=== PATIENT | female | born 1950 | race Two or more races ===

== ENCOUNTER 2018-06-27 06:57 | Outpatient (CLI) | payer OTHER ==
[2018-06-27] MEDS ORDERED: LOPRESSOR25 MG PO (12:40)
[2018-06-27] MEDS ORDERED: METFORMIN HCL500 MG PO (12:41)
[2018-06-27] MEDS ORDERED: ZESTRIL20 MG PO (12:41)
[2018-06-27] MEDS ORDERED: SYNTHROID100 MCG PO (13:31)
[2018-06-27] MEDS ORDERED: METFORMIN HCL850 MG PO (13:32)
[2018-06-27] MEDS ORDERED: PROTONIX20 MG PO (13:32)
[2018-06-27] MEDS ORDERED: [UNRECOGNIZED DRUG - OTHER] (13:32)
[2018-06-27] MEDS ORDERED: ECOTRIN81 MG PO (13:33)
[2018-06-27] MEDS ORDERED: SINGULAIR10 MG PO (13:39)
[2018-06-27] MEDS ORDERED: [UNRECOGNIZED DRUG - OTHER] PO (13:39)
== END 2018-06-27 07:09 | disposition home or self-care (01) ==
LOC: LAB 06:57
DX: Z96.651 Presence of right artificial knee joint (principal)

== ENCOUNTER 2018-06-27 07:30 | Inpatient (IN) | payer OTHER ==
[~2018-06-27] VITALS: Ht 162.6 cm; Wt 122.5 kg
[2018-06-27] MEDS ORDERED: LOPRESSOR25 MG PO (12:40)
[2018-06-27] MEDS ORDERED: ZESTRIL20 MG PO (12:41)
[2018-06-27] MEDS ORDERED: METFORMIN HCL500 MG PO (12:41)
[2018-06-27] MEDS ORDERED: SYNTHROID100 MCG PO (13:31)
[2018-06-27] MEDS ORDERED: METFORMIN HCL850 MG PO (13:32)
[2018-06-27] MEDS ORDERED: PROTONIX20 MG PO (13:32)
[2018-06-27] MEDS ORDERED: [UNRECOGNIZED DRUG - OTHER] (13:32)
[2018-06-27] MEDS ORDERED: ECOTRIN81 MG PO (13:33)
[2018-06-27] MEDS ORDERED: SINGULAIR10 MG PO (13:39)
[2018-06-27] MEDS ORDERED: [UNRECOGNIZED DRUG - OTHER] PO (13:39)
[2018-07-06] MEDS ORDERED: INTEGRA PLUS C1 EACH PO (06:15)
[2018-07-06] MEDS ORDERED: CODE1TAB37 PO (06:15)
[2018-07-06] MEDS ORDERED: XARELTO10 MG PO (06:15)
== END 2018-07-06 14:41 | disposition home or self-care (01) | DRG 470 ==
LOC: RECOVERY 07:30 → SURH 07:30 → EDUNIT# 07:30 → O/R 07-04 05:45 → SURG 07-04 05:45
PROVIDERS: ADMIT Orthopaedic Surgery Sports Medicine
PROC: 0SRC0J9 Replacement of Right Knee Joint with Synthetic Substitute, Cemented, Open Approach (ICD-10-PCS; principal; 2018-07-04 07:00)
DX: M17.11 Unilateral primary osteoarthritis, right knee (principal); E03.8 Other specified hypothyroidism; I11.0 Hypertensive heart disease with heart failure; I10 Essential (primary) hypertension; I73.89 Other specified peripheral vascular diseases

== ENCOUNTER 2020-08-20 08:35 | Outpatient (CLI) | payer OTHER ==
[~2020-08-20 08:35] MED LIST: CODE1TAB37 PO; ECOTRIN81 MG PO; INTEGRA PLUS C1 EACH PO; LOPRESSOR25 MG PO; METFORMIN HCL500 MG PO; METFORMIN HCL850 MG PO; PROTONIX20 MG PO; SINGULAIR10 MG PO; SYNTHROID100 MCG PO; XARELTO10 MG PO; ZESTRIL20 MG PO; [UNRECOGNIZED DRUG - OTHER]; [UNRECOGNIZED DRUG - OTHER] PO
== END 2020-08-20 08:39 | disposition home or self-care (01) ==
LOC: LAB 08:35
PROVIDERS: ATTEND Internal Medicine Cardiovascular Disease
DX: N18.2 Chronic kidney disease, stage 2 (mild) (principal); R80.0 Isolated proteinuria; I10 Essential (primary) hypertension; E11.9 Type 2 diabetes mellitus without complications; E03.8 Other specified hypothyroidism; E78.2 Mixed hyperlipidemia

== ENCOUNTER 2020-08-20 09:35 | Outpatient (CLI) | payer OTHER | END 2020-08-20 09:48 | disposition home or self-care (01) | LOC: NUCLEAR 09:35 | PROVIDERS: ATTEND Internal Medicine Cardiovascular Disease | DX: I87.2 Venous insufficiency (chronic) (peripheral) (principal); I10 Essential (primary) hypertension ==

== ENCOUNTER 2020-08-20 10:16 | Outpatient (CLI) | payer OTHER | END 2020-08-20 10:17 | disposition home or self-care (01) | LOC: SONOGRAMA 10:16 | PROVIDERS: ATTEND Internal Medicine Cardiovascular Disease | DX: E03.8 Other specified hypothyroidism (principal); E04.8 Other specified nontoxic goiter ==

== ENCOUNTER 2020-10-08 10:51 | Outpatient (CLI) | payer OTHER | END 2020-10-08 10:59 | disposition home or self-care (01) | LOC: SONOGRAMA 10:51 | PROVIDERS: ATTEND Internal Medicine Nephrology | DX: N18.2 Chronic kidney disease, stage 2 (mild) (principal) ==

== ENCOUNTER 2021-01-20 07:26 | Outpatient (CLI) | payer OTHER | END 2021-01-20 07:32 | disposition home or self-care (01) | LOC: MAMO-SONO 07:26 | PROVIDERS: ATTEND Obstetrics & Gynecology | DX: N60.11 Diffuse cystic mastopathy of right breast (principal); N60.12 Diffuse cystic mastopathy of left breast; Z12.31 Encounter for screening mammogram for malignant neoplasm of breast; R92.0 Mammographic microcalcification found on diagnostic imaging of breast ==

== ENCOUNTER 2021-01-23 08:23 | Outpatient (CLI) | payer OTHER | END 2021-01-23 08:29 | disposition home or self-care (01) | LOC: TOM 08:23 | PROVIDERS: ATTEND Obstetrics & Gynecology | DX: K45.1 Other specified abdominal hernia with gangrene (principal); R10.84 Generalized abdominal pain | CPT/HCPCS: 74177; Q9965 ==

== ENCOUNTER 2021-05-29 07:00 | Inpatient (IN) | payer OTHER ==
[~2021-05-29] VITALS: Ht 162.6 cm; Wt 121.1 kg
[2021-06-03] MEDS ORDERED: VASOTEC20 MG (09:10)
[2021-06-04] MEDS ORDERED: BACTRIM DS TAB1 EACH PO (06:33)
[2021-06-04] MEDS ORDERED: XARELTO10 MG PO (06:33)
[2021-06-04] MEDS ORDERED: TRAMADOL HCL50 MG PO (06:33)
[2021-06-04] MEDS ORDERED: INTEGRA PLUS C1 EACH PO (06:33)
== END 2021-06-05 19:30 | DRG 470 ==
LOC: SURH 06-02 07:00 → O/R 06-02 07:18 → SURH 06-02 07:18
PROVIDERS: ADMIT Orthopaedic Surgery Sports Medicine; ATTEND Orthopaedic Surgery Sports Medicine
PROC: 0SRD0J9 Replacement of Left Knee Joint with Synthetic Substitute, Cemented, Open Approach (ICD-10-PCS; principal; 2021-06-02 18:15)
DX: M17.12 Unilateral primary osteoarthritis, left knee (principal); I10 Essential (primary) hypertension; E78.49 Other hyperlipidemia; E03.8 Other specified hypothyroidism; E66.01 Morbid (severe) obesity due to excess calories; E11.9 Type 2 diabetes mellitus without complications; Z79.4 Long term (current) use of insulin; Z20.822 Contact with and (suspected) exposure to COVID-19

== ENCOUNTER → 2021-07-28 08:52 | Outpatient (CLI) | payer OTHER ==
[~2021-07-28 08:52] MED LIST changes: +BACTRIM DS TAB1 EACH PO; +TRAMADOL HCL50 MG PO; +VASOTEC20 MG
== END | disposition home or self-care (01) ==
LOC: LAB 08:52
PROVIDERS: ATTEND Internal Medicine Cardiovascular Disease
DX: E11.9 Type 2 diabetes mellitus without complications (principal); I10 Essential (primary) hypertension; E03.9 Hypothyroidism, unspecified; E78.2 Mixed hyperlipidemia; Z12.11 Encounter for screening for malignant neoplasm of colon; M17.12 Unilateral primary osteoarthritis, left knee

== ENCOUNTER → 2021-09-30 | Outpatient (CLI) | payer OTHER | END | disposition home or self-care (01) | LOC: RAD 15:26 | PROVIDERS: ATTEND Internal Medicine Cardiovascular Disease | DX: M12.9 Arthropathy, unspecified (principal) ==

== ENCOUNTER 2021-10-08 13:29 | Outpatient (CLI) | payer OTHER | END 2021-10-08 13:30 | disposition home or self-care (01) | LOC: NUCLEAR 13:29 | PROVIDERS: ATTEND Internal Medicine Cardiovascular Disease | DX: M81.0 Age-related osteoporosis without current pathological fracture (principal); E55.9 Vitamin D deficiency, unspecified; Z88.5 Allergy status to narcotic agent; Z91.013 Allergy to seafood; Z88.6 Allergy status to analgesic agent; Z88.8 Allergy status to other drugs, medicaments and biological substances ==

== ENCOUNTER 2021-10-30 16:00 | Outpatient (CLI) | payer OTHER | END 2021-10-30 16:03 | disposition home or self-care (01) | LOC: MAMO-SONO 16:00 | PROVIDERS: ATTEND Internal Medicine Cardiovascular Disease | DX: Z12.31 Encounter for screening mammogram for malignant neoplasm of breast (principal); N63.11 Unspecified lump in the right breast, upper outer quadrant ==

== ENCOUNTER 2021-10-30 16:43 | Outpatient (CLI) | payer OTHER | END 2021-10-30 16:44 | disposition home or self-care (01) | LOC: LAB 16:43 | PROVIDERS: ATTEND Internal Medicine Cardiovascular Disease | DX: I11.9 Hypertensive heart disease without heart failure (principal); E78.00 Pure hypercholesterolemia, unspecified; E55.9 Vitamin D deficiency, unspecified; E03.9 Hypothyroidism, unspecified; E78.2 Mixed hyperlipidemia; E11.9 Type 2 diabetes mellitus without complications ==

== ENCOUNTER 2022-02-23 11:03 | Outpatient (CLI) | payer OTHER | END 2022-02-23 11:05 | disposition home or self-care (01) | LOC: LAB 11:03 | PROVIDERS: ATTEND Internal Medicine Cardiovascular Disease | DX: I10 Essential (primary) hypertension (principal); E11.9 Type 2 diabetes mellitus without complications; E03.9 Hypothyroidism, unspecified; E78.2 Mixed hyperlipidemia; Z12.11 Encounter for screening for malignant neoplasm of colon ==

== ENCOUNTER 2022-02-24 07:28 | Outpatient (CLI) | payer OTHER | END 2022-02-24 07:29 | disposition home or self-care (01) | LOC: LAB 07:28 | PROVIDERS: ATTEND Internal Medicine Cardiovascular Disease | DX: I10 Essential (primary) hypertension (principal); E11.9 Type 2 diabetes mellitus without complications; E03.9 Hypothyroidism, unspecified; E78.2 Mixed hyperlipidemia; Z12.11 Encounter for screening for malignant neoplasm of colon ==

== ENCOUNTER 2022-03-02 14:12 | Outpatient (CLI) | payer OTHER | END 2022-03-02 15:46 | disposition home or self-care (01) | LOC: LAB 14:12 | PROVIDERS: ATTEND Internal Medicine Cardiovascular Disease | DX: D68.9 Coagulation defect, unspecified (principal) ==

== ENCOUNTER → 2022-05-14 10:43 | Outpatient (CLI) | payer OTHER | END | disposition home or self-care (01) | LOC: LAB 10:43 | PROVIDERS: ATTEND Internal Medicine Cardiovascular Disease | DX: I11.9 Hypertensive heart disease without heart failure (principal); E11.9 Type 2 diabetes mellitus without complications; E55.9 Vitamin D deficiency, unspecified; E78.2 Mixed hyperlipidemia ==

== ENCOUNTER → 2022-06-08 13:13 | Outpatient (CLI) | payer OTHER | END | disposition home or self-care (01) | LOC: LAB 13:13 | PROVIDERS: ATTEND Internal Medicine Cardiovascular Disease | DX: J11.1 Influenza due to unidentified influenza virus with other respiratory manifestations (principal); A49.3 Mycoplasma infection, unspecified site; Z20.822 Contact with and (suspected) exposure to COVID-19 ==

== ENCOUNTER 2022-06-22 15:34 | Outpatient (CLI) | payer OTHER | END 2022-06-22 15:48 | disposition home or self-care (01) | LOC: RAD 15:34 | PROVIDERS: ATTEND Internal Medicine Cardiovascular Disease | DX: M19.90 Unspecified osteoarthritis, unspecified site (principal); M17.0 Bilateral primary osteoarthritis of knee ==

== ENCOUNTER 2022-07-13 11:33 | Outpatient (CLI) | payer OTHER | END 2022-07-13 11:37 | disposition home or self-care (01) | LOC: LAB 11:33 | PROVIDERS: ATTEND Urology | DX: E78.5 Hyperlipidemia, unspecified (principal); N39.0 Urinary tract infection, site not specified; I10 Essential (primary) hypertension; R35.0 Frequency of micturition ==

== ENCOUNTER 2022-09-16 12:22 | Outpatient (CLI) | payer OTHER | END 2022-09-16 12:27 | disposition home or self-care (01) | LOC: LAB 12:22 | PROVIDERS: ATTEND Internal Medicine Nephrology | DX: I11.9 Hypertensive heart disease without heart failure (principal); E78.00 Pure hypercholesterolemia, unspecified; E55.9 Vitamin D deficiency, unspecified; N30.00 Acute cystitis without hematuria; N82.1 Other female urinary-genital tract fistulae ==

== ENCOUNTER → 2023-05-25 09:50 | Outpatient (CLI) | payer OTHER ==
[2023-05-25 11:01] LABS: HEMATOCRIT 37.3 % (36.0-45.00); HEMOGLOBIN 12.1 g/dL (12.0-15.00); MEAN CELL VOLUME 82.3 fL (80.00-100.00); MEAN CORPUSCULAR HEMOGLOBIN 26.7 pg (27.00-32.0); MEAN CORPUSCULAR HGB CONC 32.5 g/dl (32.0-36.0); PLATELET COUNT 130 K/uL (150-450); RED BLOOD COUNT 4.53 M/uL (4.00-6.00); RED CELL DISTRIBUTION WIDTH 14.7 % (11.5-14.5)
[2023-05-25 11:18] LABS: PH,URINE 5.5 (5.0-8.0); URINE APPEARANCE Cloudy; URINE BILIRRUBIN Negative (NEGATIVE); URINE BLOOD Negative; URINE COLOR Yellow; URINE GLUCOSE Negative (NEGATIVE); URINE LEUKOCYTE Negative; URINE NITRATE Negative; URINE PROTEIN Trace (NEGATIVE)
[2023-05-25 11:22] LABS: URINE BACTERIA 100.7 uL (0.0-1933); URINE EPITHELIAL CELLS 8.9 uL (0.0-38.8); URINE RBC 142.7 uL (0.0-20.8)
[2023-05-25 11:29] LABS: ALBUMIN 3.6 gm/dL (3.4-5.0); BILIRUBIN TOTAL 0.6 mg/dL (0.3-1.2); CALCIUM 9.4 mg/dL (8.5-10.1); CHOL HDL RATIO 3.4 (0-5.0); CREATININE SERUM 0.57 mg/dL (0.55-1.02); GFR 104.26; GLOBULINA 3.2 G/DL (2.4-3.5); POTASSIUM 4.03 mEq/L (3.5-5.1); T4 TOTAL 10.03 UG/DL (4.8-13.9); TOTAL PROTEIN 6.8 gm/dL (6.4-8.2); TSH 0.775 uIU/mL (0.358-3.74)
[2023-05-25 12:12] LABS: URINE MUCUS MODERATE
[2023-05-26 11:23] LABS: T3 TOTAL 0.951 ng/ml (0.846-2.02); VITAMIN D3 25 HYDROXY 32.23 ng/ml (30-120)
== END | disposition home or self-care (01) ==
LOC: LAB 09:50
PROVIDERS: ATTEND Internal Medicine Cardiovascular Disease
DX: I10 Essential (primary) hypertension (principal); E11.9 Type 2 diabetes mellitus without complications; E03.9 Hypothyroidism, unspecified; E78.2 Mixed hyperlipidemia; E55.9 Vitamin D deficiency, unspecified; Z12.11 Encounter for screening for malignant neoplasm of colon; J11.1 Influenza due to unidentified influenza virus with other respiratory manifestations; A49.3 Mycoplasma infection, unspecified site; Z20.822 Contact with and (suspected) exposure to COVID-19

== ENCOUNTER 2023-05-26 12:59 | Outpatient (CLI) | payer OTHER ==
[2023-05-26 13:53] LABS: ob NEGATIVE (NEGATIVE)
== END 2023-05-26 14:07 | disposition home or self-care (01) ==
LOC: LAB 12:59
PROVIDERS: ATTEND Internal Medicine Cardiovascular Disease
DX: E11.9 Type 2 diabetes mellitus without complications (principal); E03.9 Hypothyroidism, unspecified; E78.2 Mixed hyperlipidemia; E55.9 Vitamin D deficiency, unspecified; Z12.11 Encounter for screening for malignant neoplasm of colon; I10 Essential (primary) hypertension

== ENCOUNTER 2023-05-26 13:15 | Outpatient (CLI) | payer OTHER | END 2023-05-26 13:16 | disposition home or self-care (01) | LOC: RAD 13:15 | PROVIDERS: ATTEND Internal Medicine Cardiovascular Disease | DX: M12.9 Arthropathy, unspecified (principal) ==

== ENCOUNTER 2023-06-07 11:27 | Outpatient (CLI) | payer OTHER | END 2023-06-07 11:36 | disposition home or self-care (01) | LOC: MAMO-SONO 11:27 | PROVIDERS: ATTEND Internal Medicine Cardiovascular Disease | DX: N60.11 Diffuse cystic mastopathy of right breast (principal); N60.12 Diffuse cystic mastopathy of left breast; Z12.31 Encounter for screening mammogram for malignant neoplasm of breast ==

== ENCOUNTER 2023-10-18 12:26 | Outpatient (CLI) | payer OTHER ==
[2023-10-18 13:30] LABS: URINE APPEARANCE Cloudy; URINE BILIRRUBIN Negative (NEGATIVE); URINE BLOOD Negative; URINE COLOR Yellow; URINE GLUCOSE Negative (NEGATIVE); URINE LEUKOCYTE Negative; URINE NITRATE Negative; URINE PROTEIN Negative (NEGATIVE); URINE UROBILINOGEN 0.2 E.U./dl
[2023-10-18 13:30] LABS: HEMATOCRIT 38.3 % (36.0-45.00); HEMOGLOBIN 12.5 g/dL (12.0-15.00); MEAN CELL VOLUME 84.4 fL (80.00-100.00); MEAN CORPUSCULAR HEMOGLOBIN 27.5 pg (27.00-32.0); MEAN CORPUSCULAR HGB CONC 32.6 g/dl (32.0-36.0); PLATELET COUNT 164 K/uL (150-450); RED BLOOD COUNT 4.53 M/uL (4.00-6.00); RED CELL DISTRIBUTION WIDTH 13.7 % (11.5-14.5)
[2023-10-18 13:31] LABS: URINE BACTERIA 60.4 uL (0.0-1933); URINE EPITHELIAL CELLS 6.4 uL (0.0-38.8); URINE WBC 2.1 uL (0.0-23.2)
[2023-10-18 14:09] LABS: CALCIUM 9.1 mg/dL (8.5-10.1); CHOL HDL RATIO 3.2 (0-5.0); CREATININE SERUM 0.52 mg/dL (0.55-1.02); GFR 115.91; POTASSIUM 4.23 mEq/L (3.5-5.1); T4 TOTAL 10.53 UG/DL (4.8-13.9); TSH 0.624 uIU/mL (0.358-3.74)
== END 2023-10-18 12:29 | disposition home or self-care (01) ==
LOC: LAB 12:26
PROVIDERS: ATTEND Internal Medicine Cardiovascular Disease
DX: E11.9 Type 2 diabetes mellitus without complications (principal); I10 Essential (primary) hypertension; E03.9 Hypothyroidism, unspecified; E78.2 Mixed hyperlipidemia

== ENCOUNTER → 2023-10-21 13:01 | Outpatient (CLI) | payer OTHER | END | disposition home or self-care (01) | LOC: LAB 13:01 | PROVIDERS: ATTEND Internal Medicine | DX: K21.00 Gastro-esophageal reflux disease with esophagitis, without bleeding (principal); A09 Infectious gastroenteritis and colitis, unspecified ==

== ENCOUNTER 2023-11-18 13:59 | Outpatient (CLI) | payer OTHER | END 2023-11-18 14:11 | disposition home or self-care (01) | LOC: SONOGRAMA 13:59 | PROVIDERS: ATTEND Internal Medicine Cardiovascular Disease | DX: M12.9 Arthropathy, unspecified (principal) ==

== ENCOUNTER 2023-11-29 11:24 | Outpatient (CLI) | payer OTHER | END 2023-11-29 12:49 | disposition home or self-care (01) | LOC: SONOGRAMA 11:24 | PROVIDERS: ATTEND Internal Medicine Cardiovascular Disease | DX: E03.9 Hypothyroidism, unspecified (principal) ==

== ENCOUNTER 2023-12-07 11:02 | Outpatient (CLI) | payer OTHER | END 2023-12-07 11:10 | disposition home or self-care (01) | LOC: MRI 11:02 | PROVIDERS: ATTEND Orthopaedic Surgery Sports Medicine | DX: M75.121 Complete rotator cuff tear or rupture of right shoulder, not specified as traumatic (principal) | CPT/HCPCS: 73221 ==

== ENCOUNTER 2024-01-24 14:17 | Outpatient (CLI) | payer OTHER | END 2024-01-24 14:27 | disposition home or self-care (01) | LOC: RAD 14:17 | PROVIDERS: ATTEND Internal Medicine Cardiovascular Disease | DX: J32.9 Chronic sinusitis, unspecified (principal); M12.9 Arthropathy, unspecified; M25.512 Pain in left shoulder ==

== ENCOUNTER 2024-05-01 11:55 | Outpatient (CLI) | payer OTHER ==
[2024-05-01 13:33] LABS: HEMATOCRIT 39.8 % (36.0-45.00); HEMOGLOBIN 12.9 g/dL (12.0-15.00); MEAN CELL VOLUME 82.6 fL (80.00-100.00); MEAN CORPUSCULAR HEMOGLOBIN 26.7 pg (27.00-32.0); MEAN CORPUSCULAR HGB CONC 32.4 g/dl (32.0-36.0); PLATELET COUNT 147 K/uL (150-450); RED BLOOD COUNT 4.81 M/uL (4.00-6.00); RED CELL DISTRIBUTION WIDTH 14.1 % (11.5-14.5)
[2024-05-01 14:54] LABS: ALBUMIN 3.7 gm/dL (3.4-5.0); BILIRUBIN TOTAL 0.65 mg/dL (0.3-1.2); CALCIUM 9.4 mg/dL (8.5-10.1); CHOL HDL RATIO 3.3 (0-5.0); CREATININE SERUM 0.53 mg/dL (0.55-1.02); GFR 113.39; GLOBULINA 3.4 G/DL (2.4-3.5); POTASSIUM 4.43 mEq/L (3.5-5.1); TOTAL PROTEIN 7.1 gm/dL (6.4-8.2)
== END 2024-05-01 11:56 | disposition home or self-care (01) ==
LOC: LAB 11:55
PROVIDERS: ATTEND Internal Medicine
DX: A09 Infectious gastroenteritis and colitis, unspecified (principal); I11.9 Hypertensive heart disease without heart failure; E78.00 Pure hypercholesterolemia, unspecified; E55.9 Vitamin D deficiency, unspecified

== ENCOUNTER → 2024-05-03 13:40 | Outpatient (CLI) | payer OTHER | END | disposition home or self-care (01) | LOC: LAB 13:40 | PROVIDERS: ATTEND Internal Medicine | DX: A09 Infectious gastroenteritis and colitis, unspecified (principal) ==

== ENCOUNTER 2024-09-14 07:43 | Outpatient (CLI) | payer OTHER ==
[2024-09-14 08:34] LABS: PH,URINE 7.5 (5.0-8.0); URINE APPEARANCE Clear; URINE BILIRRUBIN Negative (NEGATIVE); URINE BLOOD Negative; URINE COLOR Yellow; URINE GLUCOSE Negative (NEGATIVE); URINE KETONE Negative (NEGATIVE); URINE LEUKOCYTE Trace; URINE NITRATE Negative; URINE PROTEIN Trace (NEGATIVE); URINE UROBILINOGEN 0.2 E.U./dl
[2024-09-14 08:39] LABS: URINE BACTERIA 130.9 uL (0.0-1933); URINE RBC 6.7 uL (0.0-20.8); URINE WBC 2.8 uL (0.0-23.2)
[2024-09-14 08:40] LABS: URINE CAST 0.44 uL (0.0-1.40)
[2024-09-14 08:41] LABS: BASO % 1.2 % (0.1-1.2); EOS # 0.12 (0.04-0.54); HEMATOCRIT 39.4 % (34.1-44.9); HEMOGLOBIN 12.1 g/dL (11.2-15.7); LYMPH # 1.16 (1.18-3.74); LYMPH % 28.6 % (19.3-53.1); MEAN CORPUSCULAR HEMOGLOBIN 25.9 pg (25.6-32.2); MONO # 0.48 (0.24-0.82); MONO % 11.9 % (4.7-12.5); NEUT # 2.23 (1.56-6.13); NEUT % 55.1 % (34.0-71.1); PLATELET COUNT 160 K/uL (163-369); RED BLOOD COUNT 4.67 M/uL (3.93-5.22); RED CELL DISTRIBUTION WIDTH 13.8 % (11.6-14.4)
[2024-09-14 08:49] LABS: ob NEGATIVE (NEGATIVE)
[2024-09-14 09:48] LABS: ALBUMIN 3.6 gm/dL (3.4-5.0); BILIRUBIN TOTAL 0.5 mg/dL (0.3-1.2); CALCIUM 9.4 mg/dL (8.5-10.1); CHOL HDL RATIO 3.4 (0-5.0); CREATININE SERUM 0.61 mg/dL (0.55-1.02); GFR 96.14; GLOBULINA 3.3 G/DL (2.4-3.5); POTASSIUM 4.33 mEq/L (3.5-5.1); T4 TOTAL 11.04 UG/DL (4.8-13.9); TOTAL PROTEIN 6.9 gm/dL (6.4-8.2); TSH 1.74 uIU/mL (0.358-3.74)
[2024-09-14 12:11] LABS: T3 TOTAL 1.21 ng/ml (0.846-2.02); VITAMIN D3 25 HYDROXY 25.38 ng/ml (30-120)
== END 2024-09-14 07:52 | disposition home or self-care (01) ==
LOC: LAB 07:43
PROVIDERS: ATTEND Internal Medicine Cardiovascular Disease
DX: I10 Essential (primary) hypertension (principal); E11.9 Type 2 diabetes mellitus without complications; E03.9 Hypothyroidism, unspecified; E78.2 Mixed hyperlipidemia; D64.0 Hereditary sideroblastic anemia; Z12.11 Encounter for screening for malignant neoplasm of colon; E55.9 Vitamin D deficiency, unspecified; M81.0 Age-related osteoporosis without current pathological fracture; I12.9 Hypertensive chronic kidney disease with stage 1 through stage 4 chronic kidney disease, or unspecified chronic kidney disease; E78.00 Pure hypercholesterolemia, unspecified

== ENCOUNTER 2024-09-20 11:32 | Outpatient (CLI) | payer OTHER | END 2024-09-20 11:39 | disposition home or self-care (01) | LOC: MAMO-SONO 11:32 | PROVIDERS: ATTEND Internal Medicine Cardiovascular Disease | DX: N60.11 Diffuse cystic mastopathy of right breast (principal); N60.12 Diffuse cystic mastopathy of left breast; Z12.31 Encounter for screening mammogram for malignant neoplasm of breast ==

== ENCOUNTER → 2024-12-25 13:10 | Outpatient (CLI) | payer OTHER ==
[2024-12-25 13:58] LABS: BASO % 0.9 % (0.1-1.2); EOS # 0.14 (0.04-0.54); EOS % 3.1 % (0.7-7.0); LYMPH # 1.15 (1.18-3.74); LYMPH % 25.6 % (19.3-53.1); MEAN PLATELET VOLUME 12.50 fl (9.4-12.4); MONO # 0.42 (0.24-0.82); MONO % 9.4 % (4.7-12.5); NEUT # 2.73 (1.56-6.13); NEUT % 60.8 % (34.0-71.1); RED CELL DISTRIBUTION WIDTH 14.5 % (11.6-14.4)
[2024-12-25 14:04] LABS: URINE APPEARANCE Clear; URINE BILIRRUBIN Negative (NEGATIVE); URINE BLOOD Negative; URINE COLOR Yellow; URINE GLUCOSE Negative (NEGATIVE); URINE KETONE Negative (NEGATIVE); URINE LEUKOCYTE Trace; URINE NITRATE Negative; URINE PROTEIN Trace (NEGATIVE); URINE UROBILINOGEN 0.2 E.U./dl
[2024-12-25 14:10] LABS: URINE BACTERIA 74.3 uL (0.0-1933); URINE EPITHELIAL CELLS 11.3 uL (0.0-38.8); URINE RBC 15.3 uL (0.0-20.8); URINE WBC 4.3 uL (0.0-23.2)
[2024-12-25 14:24] LABS: URINE CAST 0.73 uL (0.0-1.40)
[2024-12-25 14:44] LABS: BUN CREA RATIO 25.0 (7.0-25.0); CHOL HDL RATIO 3.4 (0-5.0); CREATININE SERUM 0.6 mg/dL (0.55-1.02); GFR 97.99; GLUCOSE FASTING 110.0 mg/dL (65-100); HDL 60.0 mg/dl (40-60); LDL 125.0 mg/dl (0-130); OSMOLALITY SERUM 288.0 MOSM/KG (275-295); T4 TOTAL 10.68 UG/DL (4.8-13.9); TSH 0.767 uIU/mL (0.358-3.74); VLDL 16.0 (0-39)
[2024-12-25 15:04] LABS: T3 TOTAL 1.27 ng/ml (0.846-2.02); VITAMIN D3 25 HYDROXY 42.14 ng/ml (30-120)
== END | disposition home or self-care (01) ==
LOC: LAB 13:10
PROVIDERS: ATTEND Internal Medicine Cardiovascular Disease
DX: E11.9 Type 2 diabetes mellitus without complications (principal); E03.9 Hypothyroidism, unspecified; E78.2 Mixed hyperlipidemia; I10 Essential (primary) hypertension; I11.9 Hypertensive heart disease without heart failure; E78.00 Pure hypercholesterolemia, unspecified; E06.9 Thyroiditis, unspecified

== ENCOUNTER 2025-03-08 13:42 | Outpatient (CLI) | payer OTHER | END 2025-03-08 13:44 | disposition home or self-care (01) | LOC: RAD 13:42 | PROVIDERS: ATTEND Orthopaedic Surgery Sports Medicine | DX: M17.11 Unilateral primary osteoarthritis, right knee (principal); M17.12 Unilateral primary osteoarthritis, left knee ==